=== PATIENT | male | born 1975 | race Two or more races ===

== ENCOUNTER → 2024-03-06 | Outpatient (BNVA) | payer MEDICAID, SELFPAY | END | disposition home or self-care (01) | PROVIDERS: PCP Nurse Practitioner Primary Care; Referring Provider Nurse Practitioner Primary Care; Visit Provider Nurse Practitioner Primary Care | DX: S00.03XA Contusion of scalp, initial encounter (principal) | CPT/HCPCS: 90471; 90715; 99204 ==